=== PATIENT | male | born 1965 | race Caucasian/White ===

== ENCOUNTER 2017-09-27 03:47 | Emergency (ER) | payer MEDICAID ==
[~2017-09-27] VITALS: Ht 175.3 cm; Wt 76.9 kg
[2017-09-27 03:48] VITALS: BP 153/77
[2017-09-27] MEDS ORDERED: LISI2.5T PO (04:10)
[2017-09-27] MEDS ORDERED: GABA300C10 PO (04:11)
[2017-09-27] MEDS ORDERED: ALBU2TAB PO (04:11)
[2017-09-27] MEDS ORDERED: SIMV5TAB5 PO (04:12)
[2017-09-27] MEDS ORDERED: INSU100C5 SQ-INSULIN (04:12)
[2017-09-27] MEDS ORDERED: INSU100V8 SQ (04:12)
[2017-09-27 04:32] LABS: HEMATOCRIT 41.3 % (39.2-51.8); HEMOGLOBIN 13.6 g/dL (13.7-18.0); WHITE BLOOD COUNT 11.3 x10^3/uL (3.4-10)
[2017-09-27 04:43] LABS: ASPARTATE AMINO TRANSFERASE 33 U/L (15-37); BLOOD UREA NITROGEN 26 mg/dL (7-18)
[2017-09-27 04:48] LABS: IS PT STATUS REG ER OR PRE ER? YES
== END 2017-09-27 05:41 | disposition home or self-care (01) ==
LOC: ED 05:35
DX: R60.0 Localized edema (principal); E11.9 Type 2 diabetes mellitus without complications
CPT/HCPCS: 36415; 71010; 80053; 83880; 84484; 85025; 93005; 93970; 99285